=== PATIENT | male | born 1940 | race Caucasian/White ===

== ENCOUNTER → 2020-11-02 11:25 | Outpatient (CLI) | payer MEDICARE, SELFPAY ==
[2020-11-02] MEDS: COVID-19 VACC #1, MRNA(MOD) 100 MCG/0.5 ML VIAL IM (11:40)
== END ==
PROVIDERS: Visit Provider Internal Medicine
DX: Z23 Encounter for immunization (principal)
CPT/HCPCS: 0011A; 91301

== ENCOUNTER → 2020-12-02 09:56 | Outpatient (CLI) | payer MEDICARE, SELFPAY ==
[2020-12-02] MEDS: COVID-19 VACC #2, MRNA(MOD) 100 MCG/0.5 ML VIAL IM (10:10)
== END ==
PROVIDERS: Visit Provider Internal Medicine
DX: Z23 Encounter for immunization (principal)
CPT/HCPCS: 0012A; 91301

== ENCOUNTER 2020-12-15 06:08 | Emergency (ER) | payer OTHER, SELFPAY ==
[2020-12-15] VITALS (21 sets, daily range): BP systolic 71–156; BP diastolic 44–81; PULSE 49–92; RESP 12–39; TEMP 36.6; O2SAT 94–100
--- NOTE | 2020-12-15 06:15 | ED.GENADULT ---
HPI - General Adult <Liz Camargo MD - Last Filed: 12/16/20 05:20> General Chief complaint: Chest Pain Stated complaint: Upper Back Pain Time Seen by Provider: 12/15/20 06:10 History of Present Illness HPI narrative: 80-year-old gentleman with a history of stroke currently anticoagulated on apixaban, hypertension, hyperlipidemia, hypothyroidism, BPH, presents from home on [facility] with severe chest pain that is radiating forward from his back. It awoke him from sleep at 4:30 a.m. this morning. Associated with some nausea but no significant diaphoresis. He said he had a similar episode of pain a couple of days ago that resolved after a single episode of emesis. He has not been having any exertional dyspnea, orthopnea, lower extremity edema. He notes that he is always tired and this has not changed over the last couple of days. The pain in the center of his back he describes as dull. Was initially rated at 5/10 went down to 4/10 after nitroglycerin given by medics. Describes no recent fevers, cough, abdominal pain, flank pain, change to bowel or bladder habits. Related Data Allergies Allergy/AdvReac Type Severity Reaction Status Date / Time morphine Allergy Verified 12/15/20 07:47 Review of Systems <Liz Camargo MD - Last Filed: 12/16/20 05:20> Review of Systems Narrative: Remainder of complete review of systems is otherwise unremarkable except for that included in the HPI. Patient History <Liz Camargo MD - Last Filed: 12/16/20 05:20> Medical History Hyperlipidemia Hypertension Hypothyroidism (acquired) Stroke Social History Smoking Status: Never smoker Exam <Liz Camargo MD - Last Filed: 12/16/20 05:20> Narrative Exam Narrative: General: Older-appearing gentleman in no acute distress. HEENT: Moist mucous membranes, normal sclera with reactive pupils, Neck: No JVD, supple Respiratory: Lungs are clear to auscultation, no wheezing no rales no rhonchi. Full and symmetrical air movement Cardiac: Regular rate and rhythm no murmurs no bruits Abdomen: Soft, nontender, good bowel tones, no flank pain Skin: Warm and dry, no rashes Neurologic: Grossly neurologically intact with no obvious asymmetries or abnormalities Extremities: No trauma, well perfused Psych: Cooperative, appropriate insight and affect Initial Vital Signs Initial Vital Signs: Vital Signs Temperature 97.9 F 12/15/20 06:18 Pulse Rate 92 H 12/15/20 06:18 Respiratory Rate 18 12/15/20 06:18 Blood Pressure 129/74 12/15/20 06:18 Pulse Oximetry 95 12/15/20 06:18 <Yvonne Dorman DO - Last Filed: 12/15/20 18:58> Initial Vital Signs Initial Vital Signs: Vital Signs Temperature 97.9 F 12/15/20 06:18 Pulse Rate 92 H 12/15/20 06:18 Respiratory Rate 18 12/15/20 06:18 Blood Pressure 129/74 12/15/20 06:18 Pulse Oximetry 95 12/15/20 06:18 Course <Liz Camargo MD - Last Filed: 12/16/20 05:20> Orders Ordered: Discontinued Medications Aspirin (Aspirin 81 Mg Chew Tab) 324 mg PO NOW ONE Stop: 12/15/20 07:44 Last Admin: 12/15/20 07:50 Dose: 324 mg Documented by: KBRYERS Heparin Sodium (Porcine) (Heparin 5,000 Unit/Ml Vial) 5,000 unit SUBCUT NOW ONE Stop: 12/15/20 07:56 Last Admin: 12/15/20 07:58 Dose: Not Given Documented by: BTONER Heparin Sodium (Porcine) (Heparin 5,000 Unit/Ml Vial) 5,000 unit IV NOW ONE Stop: 12/15/20 08:48 Last Admin: 12/15/20 08:49 Dose: 5,000 unit Documented by: RSTONE Hydromorphone HCl (Hydromorphone 0.5 Mg Inj) 0.5 mg IV NOW ONE Stop: 12/15/20 08:46 Last Admin: 12/15/20 08:50 Dose: 0.5 mg Documented by: RSTONE Hydromorphone HCl (Hydromorphone 0.5 Mg Inj) 0.5 mg IV NOW ONE Stop: 12/15/20 08:48 Last Admin: 12/15/20 09:05 Dose: Not Given Documented by: RUI Sodium Chloride (Normal Saline 0.9%) 1,000 mls @ 150 mls/hr IV CONT [facility] Last Infusion: 12/15/20 09:22 Dose: 0 mls/hr Documented by: Infusion: 12/15/20 09:17 Dose: 0 mls/hr Documented by: Admin: 12/15/20 07:40 Dose: 150 mls/hr Documented by: PRERNA Nitroglycerin (Nitroglycerin) 50 mg in 250 mls @ 1.5 mls/hr IV TITRATE [facility]; Protocol Last Titration: 12/15/20 09:23 Dose: 0 mcg/min, 0 mls/hr Documented by: Titration: 12/15/20 09:17 Dose: 0 mcg/min, 0 mls/hr Documented by: Admin: 12/15/20 08:40 Dose: 5 mcg/min, 1.5 mls/hr Documented by: RUI Heparin Sodium/Dextrose (Heparin Drip) 25,000 unit in 500 mls @ 20.412 mls/hr IV CONT [facility]; Protocol Last Titration: 12/15/20 09:22 Dose: 0 units/kg/hr, 0 mls/hr Documented by: Titration: 12/15/20 09:17 Dose: 0 units/kg/hr, 0 mls/hr Documented by: Admin: 12/15/20 08:51 Dose: 18 units/kg/hr, 20.412 mls/hr Documented by: RUI Metoprolol Tartrate (Metoprolol Tartrate 5 Mg/5 Ml Inj) 5 mg IV NOW ONE Stop: 12/15/20 09:00 Last Admin: 12/15/20 09:02 Dose: 5 mg Documented by: RUI Nitroglycerin (Nitroglycerin 0.4 Mg Sl Tab) 0.4 mg SL [id number] PRN PRN Reason: Chest Pain Last Admin: 12/15/20 08:10 Dose: 0.4 mg Documented by: Admin: 12/15/20 07:50 Dose: 0.4 mg Documented by: VITA Ondansetron HCl (Ondansetron 4 Mg/2 Ml Inj) 4 mg IV NOW ONE Stop: 12/15/20 08:40 Last Admin: 12/15/20 08:43 Dose: 4 mg Documented by: RUI Vital Signs Vital signs: Vital Signs - 8 hr 12/15/20 06:18 12/15/20 06:41 12/15/20 07:00 Temperature 97.9 F Pulse Rate 92 H 69 81 Respiratory Rate 18 19 24 Blood Pressure 129/74 Pulse Oximetry 95 97 12/15/20 07:14 12/15/20 07:30 12/15/20 07:31 Temperature Pulse Rate 73 68 65 Respiratory Rate 22 27 H 25 H Blood Pressure 137/74 152/72 H Pulse Oximetry 95 98 98 12/15/20 07:50 12/15/20 07:55 12/15/20 08:00 Temperature Pulse Rate 62 61 64 Respiratory Rate 25 H 24 22 Blood Pressure 143/71 H 104/60 108/58 L Pulse Oximetry 98 98 96 12/15/20 08:05 12/15/20 08:10 12/15/20 08:15 Temperature Pulse Rate 59 L 61 61 Respiratory Rate 21 21 25 H Blood Pressure 104/57 L 100/56 L 71/44 L Pulse Oximetry 96 97 98 12/15/20 08:25 12/15/20 08:36 12/15/20 08:37 Temperature Pulse Rate 56 L 67 66 Respiratory Rate 22 17 Blood Pressure 103/58 L 137/81 Pulse Oximetry 94 98 12/15/20 08:40 12/15/20 08:45 12/15/20 08:50 Temperature Pulse Rate 61 78 84 Respiratory Rate 29 H 27 H 39 H Blood Pressure 146/69 H 152/80 H 152/77 H Pulse Oximetry 97 97 <Yvonne Dorman, DO - Last Filed: 12/15/20 18:58> Orders Ordered: Discontinued Medications Aspirin (Aspirin 81 Mg Chew Tab) 324 mg PO NOW ONE Stop: 12/15/20 07:44 Last Admin: 12/15/20 07:50 Dose: 324 mg Documented by: KBRYERMariam Heparin Sodium (Porcine) (Heparin 5,000 Unit/Ml Vial) 5,000 unit SUBCUT NOW ONE Stop: 12/15/20 07:56 Last Admin: 12/15/20 07:58 Dose: Not Given Documented by: BTONER Heparin Sodium (Porcine) (Heparin 5,000 Unit/Ml Vial) 5,000 unit IV NOW ONE Stop: 12/15/20 08:48 Last Admin: 12/15/20 08:49 Dose: 5,000 unit Documented by: RUI Hydromorphone HCl (Hydromorphone 0.5 Mg Inj) 0.5 mg IV NOW ONE Stop: 12/15/20 08:46 Last Admin: 12/15/20 08:50 Dose: 0.5 mg Documented by: RUI Hydromorphone HCl (Hydromorphone 0.5 Mg Inj) 0.5 mg IV NOW ONE Stop: 12/15/20 08:48 Last Admin: 12/15/20 09:05 Dose: Not Given Documented by: RUI Sodium Chloride (Normal Saline 0.9%) 1,000 mls @ 150 mls/hr IV CONT [facility] Last Infusion: 12/15/20 09:22 Dose: 0 mls/hr Documented by: Infusion: 12/15/20 09:17 Dose: 0 mls/hr Documented by: Admin: 12/15/20 07:40 Dose: 150 mls/hr Documented by: PRERNA Nitroglycerin (Nitroglycerin) 50 mg in 250 mls @ 1.5 mls/hr IV TITRATE [facility]; Protocol Last Titration: 12/15/20 09:23 Dose: 0 mcg/min, 0 mls/hr Documented by: Titration: 12/15/20 09:17 Dose: 0 mcg/min, 0 mls/hr Documented by: Admin: 12/15/20 08:40 Dose: 5 mcg/min, 1.5 mls/hr Documented by: RUI Heparin Sodium/Dextrose (Heparin Drip) 25,000 unit in 500 mls @ 20.412 mls/hr IV CONT [facility]; Protocol Last Titration: 12/15/20 09:22 Dose: 0 units/kg/hr, 0 mls/hr Documented by: Titration: 12/15/20 09:17 Dose: 0 units/kg/hr, 0 mls/hr Documented by: Admin: 12/15/20 08:51 Dose: 18 units/kg/hr, 20.412 mls/hr Documented by: RUI Metoprolol Tartrate (Metoprolol Tartrate 5 Mg/5 Ml Inj) 5 mg IV NOW ONE Stop: 12/15/20 09:00 Last Admin: 12/15/20 09:02 Dose: 5 mg Documented by: RUI Nitroglycerin (Nitroglycerin 0.4 Mg Sl Tab) 0.4 mg SL [id number] PRN PRN Reason: Chest Pain Last Admin: 12/15/20 08:10 Dose: 0.4 mg Documented by: Admin: 12/15/20 07:50 Dose: 0.4 mg Documented by: VITA Ondansetron HCl (Ondansetron 4 Mg/2 Ml Inj) 4 mg IV NOW ONE Stop: 12/15/20 08:40 Last Admin: 12/15/20 08:43 Dose: 4 mg Documented by: RUI Vital Signs Vital signs: Vital Signs - 8 hr 12/15/20 06:18 12/15/20 06:41 12/15/20 07:00 Temperature 97.9 F Pulse Rate 92 H 69 81 Respiratory Rate 18 19 24 Blood Pressure 129/74 Pulse Oximetry 95 97 12/15/20 07:14 12/15/20 07:30 12/15/20 07:31 Temperature Pulse Rate 73 68 65 Respiratory Rate 22 27 H 25 H Blood Pressure 137/74 152/72 H Pulse Oximetry 95 98 98 12/15/20 07:50 12/15/20 07:55 12/15/20 08:00 Temperature Pulse Rate 62 61 64 Respiratory Rate 25 H 24 22 Blood Pressure 143/71 H 104/60 108/58 L Pulse Oximetry 98 98 96 12/15/20 08:05 12/15/20 08:10 12/15/20 08:15 Temperature Pulse Rate 59 L 61 61 Respiratory Rate 21 21 25 H Blood Pressure 104/57 L 100/56 L 71/44 L Pulse Oximetry 96 97 98 12/15/20 08:25 12/15/20 08:36 12/15/20 08:37 Temperature Pulse Rate 56 L 67 66 Respiratory Rate 22 17 Blood Pressure 103/58 L 137/81 Pulse Oximetry 94 98 12/15/20 08:40 12/15/20 08:45 12/15/20 08:50 Temperature Pulse Rate 61 78 84 Respiratory Rate 29 H 27 H 39 H Blood Pressure 146/69 H 152/80 H 152/77 H Pulse Oximetry 97 97 Medical Decision Making <Liz Camargo MD - Last Filed: 12/16/20 05:20> Medical Records Medical records reviewed: Yes I reviewed the patient's medical records. Lab Data Lab results reviewed: Yes I reviewed the patient's lab results. Result diagrams: 12/15/20 06:30 12/15/20 06:30 Labs: Lab Results 12/15/20 12/15/20 12/15/20 Range/Units 06:30 06:30 08:42 WBC 9.1 (4.5-11.0) X10^3/uL RBC 4.09 L (4.5-5.9) X10^6/uL Hgb 12.5 L (13.5-17.5) g/dL Hct 37.4 L (41-53) % MCV 91.5 (80-100) fL MCH 30.6 (26-34) PG MCHC 33.5 (30-36) % RDW 13.9 (11.6-14.8) % Plt Count 189 (150-400) X10^3/uL Neut % (Auto) 73.2 (50-75) % Lymph % (Auto) 17.5 L (25-40) % Bulloch % (Auto) 5.9 (3-14) % Eos % (Auto) 2.5 (2-4) % Baso % (Auto) 0.9 (0-2) % Neut # (Auto) 6700 (2787-1641) /uL Lymph # (Auto) 1600 (7320-7265) /uL Bulloch # (Auto) 500 (0-900) /uL Eos # (Auto) 200 (0-450) /uL Baso # (Auto) 100 (0-100) /uL PT 13.6 H (10.1-12.7) SECONDS INR 1.2 (0.9-1.3) APTT 33 (26.4-36.2) SECONDS Sodium 140 (137-145) mmol/L Potassium 5.1 (3.4-5.1) mmol/L Chloride 110 H (98-107) mmol/L Carbon Dioxide 25 (22-32) mmol/L BUN 33 H (9-20) mg/dL Creatinine 2.39 H (0.66-1.25) mg/dL Estimated GFR 26.4 L (>60) mL/min BUN/Creatinine Ratio 13.8 (6-22) Glucose 121 H (80-110) mg/dL Calcium 9.2 (8.4-10.2) mg/dL Total Bilirubin 0.4 (0.2-1.3) mg/dL AST 42 (17-59) IU/L ALT 14 (<50) IU/L Alkaline Phosphatase 67 (38-126) U/L Total Creatine Kinase 174 H (55-170) U/L CK-MB (CK-2) 12.80 H (<2.37) ng/mL CK-MB (CK-2) Rel Index 7.4 H* (1.5-5.0) % Troponin I 1.700 H* (0.01-0.034) ng/mL Total Protein 6.8 (6.3-8.2) g/dL Albumin 3.8 (3.5-5.0) g/dL Globulin 3.0 (1.7-4.1) g/dL Albumin/Globulin Ratio 1.3 (1.0-2.8) Lipase 115 (23-300) U/L ECG Data Attestation: I personally reviewed and interpreted this ECG as follows: Interpretation: Sinus rhythm at a rate of 69 Normal intervals, normal axis No acute ischemic changes <Yvonne Dorman, - Last Filed: 12/15/20 18:58> Lab Data Lab results reviewed: Yes I reviewed the patient's lab results. Labs: Lab Results 12/15/20 12/15/20 12/15/20 Range/Units 06:30 06:30 08:42 WBC 9.1 (4.5-11.0) X10^3/uL RBC 4.09 L (4.5-5.9) X10^6/uL Hgb 12.5 L (13.5-17.5) g/dL Hct 37.4 L (41-53) % MCV 91.5 (80-100) fL MCH 30.6 (26-34) PG MCHC 33.5 (30-36) % RDW 13.9 (11.6-14.8) % Plt Count 189 (150-400) X10^3/uL Neut % (Auto) 73.2 (50-75) % Lymph % (Auto) 17.5 L (25-40) % Bulloch % (Auto) 5.9 (3-14) % Eos % (Auto) 2.5 (2-4) % Baso % (Auto) 0.9 (0-2) % Neut # (Auto) 6700 (6880-4505) /uL Lymph # (Auto) 1600 (3005-3980) /uL Bulloch # (Auto) 500 (0-900) /uL Eos # (Auto) 200 (0-450) /uL Baso # (Auto) 100 (0-100) /uL PT 13.6 H (10.1-12.7) SECONDS INR 1.2 (0.9-1.3) APTT 33 (26.4-36.2) SECONDS Sodium 140 (137-145) mmol/L Potassium 5.1 (3.4-5.1) mmol/L Chloride 110 H (98-107) mmol/L Carbon Dioxide 25 (22-32) mmol/L BUN 33 H (9-20) mg/dL Creatinine 2.39 H (0.66-1.25) mg/dL Estimated GFR 26.4 L (>60) mL/min BUN/Creatinine Ratio 13.8 (6-22) Glucose 121 H (80-110) mg/dL Calcium 9.2 (8.4-10.2) mg/dL Total Bilirubin 0.4 (0.2-1.3) mg/dL AST 42 (17-59) IU/L ALT 14 (<50) IU/L Alkaline Phosphatase 67 (38-126) U/L Total Creatine Kinase 174 H (55-170) U/L CK-MB (CK-2) 12.80 H (<2.37) ng/mL CK-MB (CK-2) Rel Index 7.4 H* (1.5-5.0) % Troponin I 1.700 H* (0.01-0.034) ng/mL Total Protein 6.8 (6.3-8.2) g/dL Albumin 3.8 (3.5-5.0) g/dL Globulin 3.0 (1.7-4.1) g/dL Albumin/Globulin Ratio 1.3 (1.0-2.8) Lipase 115 (23-300) U/L Imaging Data Chest x-ray: Radiologist's Impression: PROCEDURE: XR CHEST 1V INDICATIONS: chest pain TECHNIQUE: One view of the chest was acquired. COMPARISON: [facility], CT, CT ANGIO CHEST ABDOMEN PELVIS, 12/15/2020, 7:59. FINDINGS: Surgical changes and devices: Wireless pacer is noted. Lungs and pleura: Lungs are clear. No pleural effusions or pneumothorax. Chronic interstitial changes are present. Mediastinum: Mediastinal contours appear normal. Heart size is normal. Bones and chest wall: No suspicious bony lesions. Overlying soft tissues appear unremarkable. IMPRESSION: No acute pulmonary process. The above findings are concordant with preliminary report. Dictated by: Mirella Garcia M.D. on 12/15/2020 at 8:36 CT scan - chest: Radiologist's Impression: I spoke personally with Dr. Wiley radiology who states that there is thrombus in the aorta with ulcers less than 1 cm. It may be the beginning of dissection but difficult to tell with out priors to compare ECG Data Attestation: I personally reviewed and interpreted this ECG as follows: Interpretation: EKG 1. At 6:12 a.m. sinus rhythm rate 69 tall T-waves in V3 V2 V4 V5 no ST elevation or depression no T-wave inversion small Q-wave noted in aVL EKG 2. At 754 persistent peaked T-waves with out ST depression or T-wave inversions although T-wave inversion in AVR is more pronounced MDM Narrative Medical decision making narrative: Received sign-out from Dr. Camargo and seen evaluated patient myself. He appears quite uncomfortable complaining of pain between his shoulder blades. Daughter states that he has a known abdominal aortic aneurysm. He says that he woke up this morning with chest discomfort he feels like pain is coming from his back into his chest. He is feeling nauseated and short of breath. EKGs are concerning for peaked T-waves and troponin is positive at 1.7. However there is really no change in EKGs at the 2 hour gus. Repeat EKG does show on ST depression in V3 through V5 with ST elevation in lead 2 with persistent T-wave inversion in aVR. CT angio was also done I have spoken with Radiology myself. 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 At this time he agrees with transfer for STEMI protocol and he will look at the CT angio Dr. Nguyen ER physician updated on patient's symptoms and happily accepted patient for transfer <Yvonne Dorman, DO - Last Filed: 12/15/20 18:58> Critical Care Time Critical Care Time: Yes Total Critical Care Time: 45 Attestation: The high probability of a clinically significant, sudden or life threatening deterioration of the [cardiovascular] system(s) required my full and direct attention, intervention and personal management. The aggregate critical care time was [45] minutes. This time is in addition to time spent performing reported procedures but includes the following: [x] Data Review and interpretation [x] Patient assessment and monitoring of vital signs [x] Documentation [x] Medication orders and management Discharge Plan Departure Patient Disposition: [facility] Clinical Impression: ST elevation (STEMI) myocardial infarction
--- NOTE | 2020-12-15 06:37 | DI.RAD.S_ITS ---
PROCEDURE: XR CHEST 1V INDICATIONS: chest pain TECHNIQUE: One view of the chest was acquired. COMPARISON: [facility], CT, CT ANGIO CHEST ABDOMEN PELVIS, 12/15/2020, 7:59. FINDINGS: Surgical changes and devices: Wireless pacer is noted. Lungs and pleura: Lungs are clear. No pleural effusions or pneumothorax. Chronic interstitial changes are present. Mediastinum: Mediastinal contours appear normal. Heart size is normal. Bones and chest wall: No suspicious bony lesions. Overlying soft tissues appear unremarkable. IMPRESSION: No acute pulmonary process. The above findings are concordant with preliminary report. Dictated by: Mirella Garcia M.D. on 12/15/2020 at 8:36 Approved by: Mirella Garcia M.D. on 12/15/2020 at 8:37
[2020-12-15 06:51] LABS: Add Manual Diff / Slide Review NO; Basophils Absolute Auto 100 /uL (0-100); Basophils Percent Auto 0.9 % (0-2); Eosinophils Absolute Auto 200 /uL (0-450); Eosinophils Percent Auto 2.5 % (2-4); Hematocrit 37.4 % (41-53); Hemoglobin 12.5 g/dL (13.5-17.5); Lymphocytes Absolute Auto 1600 /uL (1100-4500); Lymphocytes Percent Auto 17.5 % (25-40); Mean Corpuscular HGB Conc 33.5 % (30-36); Mean Corpuscular Hemoglobin 30.6 PG (26-34); Mean Corpuscular Volume 91.5 fL (80-100); Monocytes Absolute Auto 500 /uL (0-900); Monocytes Percent Auto 5.9 % (3-14); Neutrophils Absolute Auto 6700 /uL (1500-7000); Neutrophils Percent Auto 73.2 % (50-75); Platelet Count 189 X10^3/uL (150-400); Red Blood Cell Count 4.09 X10^6/uL (4.5-5.9); Red Cell Distribution Width 13.9 % (11.6-14.8); White Blood Cell Count 9.1 X10^3/uL (4.5-11.0)
[2020-12-15 06:56] LABS: Alanine Aminotransferase 14 IU/L (<50); Albumin 3.8 g/dL (3.5-5.0); Albumin Globulin Ratio 1.3 (1.0-2.8); Alkaline Phosphatase 67 U/L (38-126); Aspartate Aminotransferase 42 IU/L (17-59); BUN Creatinine Ratio 13.8 (6-22); Bilirubin Total 0.4 mg/dL (0.2-1.3); Blood Urea Nitrogen 33 mg/dL (9-20); Calcium 9.2 mg/dL (8.4-10.2); Carbon Dioxide 25 mmol/L (22-32); Chloride 110 mmol/L (98-107); Creatine Kinase 174 U/L (55-170); Estimated Glomerular Filt Rate 26.4 mL/min (>60); Glucose 121 mg/dL (80-110); HEMOLYSIS < 15 (0-50); Lipase 115 U/L (23-300); Potassium 5.1 mmol/L (3.4-5.1); Sodium 140 mmol/L (137-145); Total Protein 6.8 g/dL (6.3-8.2)
[2020-12-15 07:36] LABS: CKMB % Relative Index 7.4 % (1.5-5.0)
[2020-12-15] MEDS: SODIUM CHLORIDE 0.9% 1,000 ML 150 ML IV (07:40)
[2020-12-15] MEDS: ASPIRIN 81 MG CHEW TAB 324 MG PO (07:50)
[2020-12-15] MEDS: NITROGLYCERIN 0.4 MG SL TAB SL ×2 (07:50→08:10)
--- NOTE | 2020-12-15 07:53 | DI.CT.S_ITS ---
PROCEDURE: CT ANGIO CHEST ABDOMEN PELVIS INDICATIONS: Known abdominal aneurysm with thoracic pain and positive tro TECHNIQUE: Precontrast 5 mm thick sections acquired from the lung apices to the iliac crests. After the administration of intravenous contrast, 2.5 mm thick sections again acquired from the lung apices to the iliac crests. Maximum intensity projection (MIP) oblique sagittal and coronal reformats were then acquired. For radiation dose reduction, the following was used: automated exposure control. COMPARISON: None. FINDINGS: CHEST: Lungs: Airway thickening in keeping with nonspecific bronchitis and/or reactive airways disease. Scattered subsegmental atelectasis and/or scarring. No focal consolidation. Severe upper lobe predominant centrilobular emphysema. There also widespread subpleural reticular opacities with possible early honeycombing appearance seen in the right lower lobe for example image 234/6. Also, along the minor fissure on image 118/6. However, no prior comparisons are available. Pleura: No pleural effusions or pneumothorax. Heart: Mildly enlarged. No pericardial effusion. Extensive mitral valvular calcifications as well as diffuse coronary artery calcifications. Reflux of IV contrast material into the patent veins suggest decreased cardiac output. Chest nodes: Normal. Thyroid gland: Negative Aorta: Thoracic aorta grossly normal in size although there is extensive intraluminal plaque and vascular calcification. Within the descending thoracic aorta there are multiple areas of penetrating atherosclerotic ulcer appearances for example image 75/5 measuring 5 mm, image 74/5 measuring approximately 8 mm and image 82/5 measuring approximately 7 mm. The exact age of these findings are is technically indeterminate in the absence of prior studies although could be acute. No periaortic hemorrhage is seen. Low large dissection identified. Pulmonary arteries: No intraluminal filling defects. Esophagus: Diffuse circumferential mural thickening involving the distal esophagus, which is nonspecific. This could be inflammatory or infectious in nature although cannot exclude neoplasm. ABDOMEN: Liver: Normal. Gallbladder: Sub 5 mm incidentally noted cholelithiasis. Bile ducts: Normal. Pancreas: Normal. Spleen: Normal. Adrenals: Normal. Kidneys and ureters: No hydronephrosis. Severe diffuse left renal atrophy or hypoplasia. Right renal cortical scarring and atrophy. Ureters appear decompressed. Stomach and duodenum: Partially decompressed and grossly unremarkable. Bowel: Colonic diverticulosis is seen without evidence of acute complication. No evidence of bowel obstruction. There is mild to moderate stool. The rectum is grossly unremarkable. Other: No free fluid or air. Abdominal nodes: Normal. Aorta and IVC: Large infrarenal abdominal aortic aneurysm measuring approximately 4.6 x 5.1 cm, extending to the bifurcation as well as both common iliac arteries. The right common iliac artery measures up to 4.5 x 4.5 cm and the left common iliac artery measures up to 3.3 x 3.3 cm. Extensive intraluminal thrombus is present. No periaortic hemorrhage is seen. Ventral wall: Tiny periumbilical fat containing hernia. PELVIS: Bladder: Normal. Inguinal region: No hernia. Pelvic nodes: Normal. Bones: Spondylytic changes and facet arthropathy. No vertebral body compression fracture. There are scattered Schmorl's nodes. IMPRESSION: Large infrarenal abdominal aortic aneurysm, which extends to the bifurcation and the common iliac arteries bilaterally as detailed above. No periaortic hemorrhage is seen. Multiple areas of penetrating ulcers involving the thoracic aorta, although which appear to be subcentimeter in size. These could be acute although technically age indeterminate given the absence of prior studies. No large dissection seen. Prior examinations would be most helpful for comparison purposes if obtainable. No evidence of pulmonary embolism. Scattered subsegmental atelectasis and/or scarring. No focal consolidation. Possible early interstitial disease/fibrosis in particular involving the right lung base and along the right fissure as discussed above. Coronary atherosclerosis Incidentally noted cholelithiasis Findings (including all critical results, if any) and recommendations were personally telephoned and discussed with Dr. Dorman on 12-15-20 09:08 Dictated by: Jean Marie Wiley M.D. on 12/15/2020 at 8:51 Approved by: Jean Marie Wiley M.D. on 12/15/2020 at 9:12
[2020-12-15] MEDS: NITROGLYCERIN 50 MG/250 ML INFUS..BTL IV (08:40)
[2020-12-15] MEDS: ONDANSETRON 4 MG/2 ML INJ IV (08:43)
[2020-12-15] MEDS: HEPARIN 5,000 UNIT/ML VIAL 5000 UNIT IV (08:49)
[2020-12-15] MEDS: HYDROMORPHONE 0.5 MG INJ IV (08:50)
[2020-12-15] MEDS: HEPARIN DRIP 25,000 UNIT/500 ML IV.SOLN 20.412 UNIT IV (08:51)
[2020-12-15 08:57] LABS: INR 1.2 (0.9-1.3); Prothrombin Time 13.6 SECONDS (10.1-12.7)
--- NOTE | 2020-12-15 08:57 | PC.NURSE ---
Ibrahima Rn went over to Ct with patient to check blood pressure.
[2020-12-15 08:59] LABS: PTT Partial Thromboplastin Tim 33 SECONDS (26.4-36.2)
--- NOTE | 2020-12-15 08:59 | PC.NURSE ---
JALEN nuñez dunia blood
[2020-12-15] MEDS: METOPROLOL TARTRATE 5 MG/5 ML INJ IV (09:02)
--- NOTE | 2020-12-15 09:13 | PC.NURSE ---
pt is transferring to [facility] for STEMI. on Heparin, NTG and ivf.
== END 2020-12-15 09:15 | disposition short-term general hospital (02) ==
PROVIDERS: Emergency Medicine; Emergency Provider Emergency Medicine
DX: I21.3 ST elevation (STEMI) myocardial infarction of unspecified site (principal); M54.6 Pain in thoracic spine; R11.0 Nausea; Z86.79 Personal history of other diseases of the circulatory system
CPT/HCPCS: 36415; 71045; 71275; 74174; 80053; 82550; 82553; 83690; 84484; 85025; 85610; 85730; 93005; 93010; 96365; 96368; 96375; 99285; 99291; J1170; J1644; J2405

== ENCOUNTER → 2021-03-13 14:17 | Outpatient (ROUT) | payer OTHER, MEDICARE, SELFPAY ==
[2021-03-13 14:57] LABS: BUN Creatinine Ratio 15.1 (6-22); Blood Urea Nitrogen 34 mg/dL (9-20); Calcium 9.1 mg/dL (8.4-10.2); Carbon Dioxide 28 mmol/L (22-32); Chloride 106 mmol/L (98-107); Estimated Glomerular Filt Rate 28.3 mL/min (>60); Glucose 95 mg/dL (80-110); HEMOLYSIS < 15 (0-50); Potassium 4.6 mmol/L (3.4-5.1); Sodium 139 mmol/L (137-145)
== END ==
PROVIDERS: Visit Provider Family Medicine
DX: I51.9 Heart disease, unspecified (principal)
CPT/HCPCS: 80048

== ENCOUNTER 2021-03-25 23:00 | Emergency (ER) | payer OTHER, SELFPAY ==
[2021-03-25 23:05] VITALS: BP 165/91; PULSE 76; RESP 24; TEMP 36.6; O2SAT 97; BMI 20.2
--- NOTE | 2021-03-25 23:05 | DI.RAD.S_ITS ---
PROCEDURE: XR CHEST 1V INDICATIONS: Chest pain TECHNIQUE: One view of the chest was acquired. COMPARISON: [facility], CR, XR CHEST 1V, 12/15/2020, 6:39. FINDINGS: Surgical changes and devices: Cardiac leadless pacer. Additional device projects in the region of the GE junction Lungs and pleura: Scattered subsegmental atelectasis and/or scarring. No focal consolidation. No pleural effusion or pneumothorax. Mediastinum: Mediastinal contours appear normal. Heart size is normal. Bones and chest wall: No suspicious bony lesions. Overlying soft tissues appear unremarkable. IMPRESSION: Scattered subsegmental atelectasis and/or scarring. No focal consolidation. Dictated by: Jean Marie Wiley M.D. on 03/25/2021 at 23:47 Approved by: Jean Marie Wiley M.D. on 03/25/2021 at 23:48
[2021-03-25 23:13] VITALS: PULSE 76; RESP 22; O2SAT 97
[2021-03-25 23:13] LABS: Add Manual Diff / Slide Review NO; Basophils Absolute Auto 0 /uL (0-100); Basophils Percent Auto 0.3 % (0-2); Eosinophils Absolute Auto 400 /uL (0-450); Eosinophils Percent Auto 4.6 % (2-4); Hematocrit 36.5 % (41-53); Hemoglobin 12.2 g/dL (13.5-17.5); Lymphocytes Absolute Auto 2600 /uL (1100-4500); Lymphocytes Percent Auto 31.8 % (25-40); Mean Corpuscular HGB Conc 33.3 % (30-36); Mean Corpuscular Hemoglobin 29.5 PG (26-34); Mean Corpuscular Volume 88.8 fL (80-100); Monocytes Absolute Auto 700 /uL (0-900); Monocytes Percent Auto 8.3 % (3-14); Neutrophils Absolute Auto 4500 /uL (1500-7000); Platelet Count 221 X10^3/uL (150-400); Red Blood Cell Count 4.11 X10^6/uL (4.5-5.9); Red Cell Distribution Width 14.4 % (11.6-14.8); White Blood Cell Count 8.2 X10^3/uL (4.5-11.0)
[2021-03-25] MEDS: ONDANSETRON 4 MG/2 ML INJ IV (23:16)
[2021-03-25 23:19] LABS: Alanine Aminotransferase 12 IU/L (<50); Albumin 3.9 g/dL (3.5-5.0); Albumin Globulin Ratio 1.2 (1.0-2.8); Alkaline Phosphatase 91 U/L (38-126); Aspartate Aminotransferase 22 IU/L (17-59); BUN Creatinine Ratio 17.7 (6-22); Bilirubin Total 0.3 mg/dL (0.2-1.3); Blood Urea Nitrogen 40 mg/dL (9-20); Calcium 9.1 mg/dL (8.4-10.2); Carbon Dioxide 29 mmol/L (22-32); Chloride 104 mmol/L (98-107); Creatine Kinase 36 U/L (55-170); Estimated Glomerular Filt Rate 28.1 mL/min (>60); Globulin 3.2 g/dL (1.7-4.1); Glucose 109 mg/dL (80-110); HEMOLYSIS < 15 (0-50); Lipase 262 U/L (23-300); Potassium 4.4 mmol/L (3.4-5.1); Sodium 139 mmol/L (137-145); Total Protein 7.1 g/dL (6.3-8.2)
--- NOTE | 2021-03-25 23:27 | ED.CHESTPAIN ---
HPI - Chest Pain General Chief Complaint: Chest Pain Stated Complaint: Chest Pain Time Seen by Provider: 03/25/21 23:01 Source: patient and EMS Mode of arrival: EMS Limitations: no limitations History of Present Illness HPI narrative: Patient is a 80-year-old male. He is a DNR/DNI. I did confirm that with him upon arrival. Is here for evaluation of chest pain and back pain. He states that all of his symptoms started earlier this evening. He was lying in bed. He states he became nauseous and had some pickups and then his chest pain and back pain if started. He received Zofran by EMS prior to arrival. By the time I evaluated him he was asymptomatic. He earlier this year he was seen in this facility and transferred for cardiology referral. I was able to review those notes. He did not receive a catheterization. He declared that time that he was a DNR/DNI. It was also reported by the nursing facility that his blood pressure was elevated at the time he was having symptoms. Related Data Allergies Allergy/AdvReac Type Severity Reaction Status Date / Time codeine Allergy Verified 03/25/21 23:05 morphine Allergy Verified 12/15/20 07:47 Review of Systems Constitutional Constitutional: Reports system reviewed and no additional complaints, except as documented Cardiovascular Cardiovascular: Reports as per HPI and Reports system reviewed and no additional complaints, except as documented Respiratory Respiratory: Reports as per HPI and Reports system reviewed and no additional complaints, except as documented Gastrointestinal Gastrointestinal: Reports as per HPI and Reports system reviewed and no additional complaints, except as documented Musculoskeletal Musculoskeletal: Reports system reviewed and no additional complaints, except as documented Integumentary/Breasts Skin/Breast: Reports system reviewed and no additional complaints, except as documented Hematologic/Lymphatic On Anticoagulants: No Patient History Medical History Hyperlipidemia Hypertension Hypothyroidism (acquired) Stroke Social History Smoking Status: Former smoker Smoking Status: Former smoker Substance Use Type: does not use Exam Initial Vital Signs Initial Vital Signs: Vital Signs Temperature 97.8 F 03/25/21 23:05 Pulse Rate 76 03/25/21 23:05 Respiratory Rate 24 03/25/21 23:05 Blood Pressure 165/91 H 03/25/21 23:05 Pulse Oximetry 97 03/25/21 23:05 Const General: cooperative and healthy appearing [facility] Head: normal to inspection and normocephalic Chest Chest: No tenderness Resp Effort & Inspection: normal respiratory effort Auscultation: clear to auscultation bilaterally Cardio Rate: regular rate Rhythm: regular rhythm GI Inspection: normal to inspection Skin General: no rashes or lesions noted Neuro General: patient alert, patient awake and patient oriented x3 Extrem General: normal to inspection and capillary refill normal Psych Appearance: grossly normal and well kempt Course Orders Ordered: ED Orders 03/25/21 23:05 XR chest 1V Stat 03/25/21 23:06 EKG-12 Lead Stat 03/25/21 23:08 Complete Blood Count AUTO DIFF Stat Comprehensive Metabolic Panel Stat Lipase Stat NT-proBNP (BNP-Adult 18+) Stat Troponin & CK Cardiac Panel Stat Discontinued Medications Ondansetron HCl (Ondansetron 4 Mg/2 Ml Inj) 4 mg IV NOW ONE Stop: 03/25/21 23:11 Last Admin: 03/25/21 23:16 Dose: 4 mg Documented by: DONALD Vital Signs Vital signs: Vital Signs - 8 hr 03/25/21 23:05 Temperature 97.8 F Pulse Rate 76 Respiratory Rate 24 Blood Pressure 165/91 H Pulse Oximetry 97 MDM - Chest Pain Lab Data Attestation: I reviewed the patient's lab results. Result diagrams: 03/25/21 23:08 03/25/21 23:08 Labs: Lab Results 03/25/21 03/25/21 Range/Units 23:08 23:08 WBC 8.2 (4.5-11.0) X10^3/uL RBC 4.11 L (4.5-5.9) X10^6/uL Hgb 12.2 L (13.5-17.5) g/dL Hct 36.5 L (41-53) % MCV 88.8 (80-100) fL MCH 29.5 (26-34) PG MCHC 33.3 (30-36) % RDW 14.4 (11.6-14.8) % Plt Count 221 (150-400) X10^3/uL Neut % (Auto) 55.0 (50-75) % Lymph % (Auto) 31.8 (25-40) % [place] % (Auto) 8.3 (3-14) % Eos % (Auto) 4.6 H (2-4) % Baso % (Auto) 0.3 (0-2) % Neut # (Auto) 4500 (1087-7885) /uL Lymph # (Auto) 2600 (5494-3011) /uL [place] # (Auto) 700 (0-900) /uL Eos # (Auto) 400 (0-450) /uL Baso # (Auto) 0 (0-100) /uL Sodium 139 (137-145) mmol/L Potassium 4.4 (3.4-5.1) mmol/L Chloride 104 (98-107) mmol/L Carbon Dioxide 29 (22-32) mmol/L BUN 40 H (9-20) mg/dL Creatinine 2.26 H (0.66-1.25) mg/dL Estimated GFR 28.1 L (>60) mL/min BUN/Creatinine Ratio 17.7 (6-22) Glucose 109 (80-110) mg/dL Calcium 9.1 (8.4-10.2) mg/dL Total Bilirubin 0.3 (0.2-1.3) mg/dL AST 22 (17-59) IU/L ALT 12 (<50) IU/L Alkaline Phosphatase 91 (38-126) U/L Total Creatine Kinase 36 L (55-170) U/L CK-MB (CK-2) TNP CK-MB (CK-2) Rel Index TNP Troponin I 0.046 H (0.01-0.034) ng/mL NT-Pro-B Natriuret Pep 4370 H (<450) pg/mL Total Protein 7.1 (6.3-8.2) g/dL Albumin 3.9 (3.5-5.0) g/dL Globulin 3.2 (1.7-4.1) g/dL Albumin/Globulin Ratio 1.2 (1.0-2.8) Lipase 262 (23-300) U/L Imaging Data Chest x-ray: Radiologist's Impression: [address] [address] XRay Report Signed Patient: Bro Marie MR#: [id number] : 1940 Acct:[id number] Age/Sex: 80 / M Date of Service: 03/25/21 Loc: ED Accession Number: [id number] ?? Procedure: XR chest 1V Ordering Provider: Yony Hernandez D.O. PROCEDURE:? XR CHEST 1V ? INDICATIONS:? Chest pain ? TECHNIQUE:? One view of the chest was acquired.? ? COMPARISON:? [facility], CR, XR CHEST 1V, 12/15/2020, 6:39. ? FINDINGS:? ? Surgical changes and devices:? Cardiac leadless pacer.? Additional device projects in the region of the GE junction ? Lungs and pleura:? Scattered subsegmental atelectasis and/or scarring. No focal consolidation.? No pleural effusion or pneumothorax.? ? Mediastinum:? Mediastinal contours appear normal.? Heart size is normal.? ? Bones and chest wall:? No suspicious bony lesions.? Overlying soft tissues appear unremarkable.? ? IMPRESSION:? Scattered subsegmental atelectasis and/or scarring. No focal consolidation.? Dictated by: Jean Marie Wiley M.D. on 03/25/2021 at 23:47 ? ? Approved by: Jean Marie Wiley M.D. on 03/25/2021 at 23:48? ECG Data Attestation: I personally reviewed and interpreted this ECG as follows: Prior ECG tracings: available for review Interpretation: Sinus rhythm Ventricular rate 81 Normal axis Normal QRS Normal QTC No ST T wave changes MDM Narrative Medical decision making narrative: I was able to review the notes from his visit couple months ago. He clearly states that he was pursuing a natural and did not want resuscitation. No catheterization was performed at that time. There was also notes about hospice/palliative care being involved. By the time I evaluated the patient today he was asymptomatic. His EKG is unchanged from prior EKG. Chest x-ray is unremarkable. Patient is alert oriented x3. We will hold on further workup for now patient would like to be discharged back to his living facility. He was given return precautions. He expressed understanding and agreement. Discharge Plan Departure Patient Disposition: Home Clinical Impression: Chest pain Instructions: DI for Chest Pain Activity Restrictions/Additional Instructions: You can continue to take all of your medications as directed. Contact your primary provider for a follow-up. Return to the emergency department for any new or worsening symptoms
[2021-03-25 23:30] VITALS: PULSE 84; RESP 32
[2021-03-25 23:31] LABS: NT-proBNP (BNP-Adult 18+) 4370 pg/mL (<450); Troponin I 0.046 ng/mL (0.01-0.034)
[2021-03-26] VITALS: BP 154/84; PULSE 81; RESP 19; O2SAT 97
[2021-03-26 00:30] VITALS: BP 132/92; PULSE 87; RESP 20; O2SAT 97
== END 2021-03-26 01:26 | disposition home or self-care (01) ==
PROVIDERS: Emergency Provider Emergency Medicine
DX: R07.9 Chest pain, unspecified (principal); M54.9 Dorsalgia, unspecified; R11.0 Nausea
CPT/HCPCS: 36415; 71045; 80053; 82550; 83690; 83880; 84484; 85025; 93005; 96374; 99284; J2405

== ENCOUNTER 2021-03-29 20:20 | Emergency (ER) | payer OTHER, SELFPAY ==
[2021-03-29] VITALS (11 sets, daily range): BP systolic 128–181; BP diastolic 61–82; PULSE 73–87; RESP 16–25; TEMP 36.2; O2SAT 95–99; BMI 20.3
--- NOTE | 2021-03-29 20:38 | DI.RAD.S_ITS ---
PROCEDURE: XR CHEST 1V INDICATIONS: chest pain TECHNIQUE: One view of the chest was acquired. COMPARISON: [facility], CR, XR CHEST 1V, 03/25/2021, 23:13. FINDINGS: Surgical changes and devices: Left chest wall cardiac device is seen. Lungs and pleura: Lungs are clear. No pleural effusions or pneumothorax. Mediastinum: Mildly tortuous thoracic aorta with aortic arch calcifications are noted . Heart size is normal. Bones and chest wall: No suspicious bony lesions. Overlying soft tissues appear unremarkable. IMPRESSION: No acute cardiopulmonary pathology. Dictated by: Candido Dyer M.D. on 03/29/2021 at 20:51 Approved by: Candido Dyer M.D. on 03/29/2021 at 20:52
[2021-03-29 20:47] LABS: INR 1.1 (0.9-1.3); Prothrombin Time 12.6 SECONDS (10.1-12.7)
[2021-03-29 20:50] LABS: PTT Partial Thromboplastin Tim 36 SECONDS (26.4-36.2)
[2021-03-29 20:52] LABS: Alanine Aminotransferase 12 IU/L (<50); Albumin 3.8 g/dL (3.5-5.0); Albumin Globulin Ratio 1.2 (1.0-2.8); Alkaline Phosphatase 74 U/L (38-126); Aspartate Aminotransferase 22 IU/L (17-59); BUN Creatinine Ratio 18.1 (6-22); Bilirubin Total 0.4 mg/dL (0.2-1.3); Blood Urea Nitrogen 41 mg/dL (9-20); Calcium 9.1 mg/dL (8.4-10.2); Carbon Dioxide 25 mmol/L (22-32); Chloride 106 mmol/L (98-107); Creatine Kinase 30 U/L (55-170); Estimated Glomerular Filt Rate 28.1 mL/min (>60); Globulin 3.3 g/dL (1.7-4.1); Glucose 100 mg/dL (80-110); HEMOLYSIS 37 (0-50); Lipase 257 U/L (23-300); Potassium 4.4 mmol/L (3.4-5.1); Sodium 138 mmol/L (137-145); Total Protein 7.1 g/dL (6.3-8.2)
[2021-03-29 20:53] LABS: Add Manual Diff / Slide Review NO; Basophils Absolute Auto 100 /uL (0-100); Basophils Percent Auto 1.4 % (0-2); Eosinophils Absolute Auto 400 /uL (0-450); Eosinophils Percent Auto 6.1 % (2-4); Hematocrit 36.5 % (41-53); Hemoglobin 11.9 g/dL (13.5-17.5); Lymphocytes Absolute Auto 2200 /uL (1100-4500); Lymphocytes Percent Auto 35.4 % (25-40); Mean Corpuscular HGB Conc 32.6 % (30-36); Mean Corpuscular Hemoglobin 29.2 PG (26-34); Mean Corpuscular Volume 89.6 fL (80-100); Monocytes Absolute Auto 600 /uL (0-900); Monocytes Percent Auto 9.5 % (3-14); Neutrophils Absolute Auto 3000 /uL (1500-7000); Neutrophils Percent Auto 47.6 % (50-75); Platelet Count 214 X10^3/uL (150-400); Red Blood Cell Count 4.08 X10^6/uL (4.5-5.9); Red Cell Distribution Width 14.7 % (11.6-14.8); White Blood Cell Count 6.2 X10^3/uL (4.5-11.0)
[2021-03-29 21:03] LABS: Troponin I 0.033 ng/mL (0.01-0.034)
--- NOTE | 2021-03-29 21:14 | ED_ITS ---
HPI - Chest Pain General Chief Complaint: Chest Pain Stated Complaint: Chest pain Time Seen by Provider: 03/29/21 20:52 Source: patient and EMS Mode of arrival: EMS Limitations: no limitations History of Present Illness HPI narrative: 80-year-old male former smoker with history of coronary artery disease, hypertension and hyperlipidemia presents for the 2nd time this week with a chief complaint of some epigastric pain that developed after eating, at rest. This evening he ate dinner and about an hour later developed this pressure in his epigastrium with radiation to his back that was completely resolved after belching, and prior to his arrival. He denies associated symptoms such as dizziness, weakness or lightheadedness. He denies any shortness of breath. He denies any exertional fatigue. He has had no fever chills. Denies any ongoing symptoms such as pain nausea or vomiting. He states it does feel different than when he had a heart attack but because with was in his chest he felt concerned. He had been living with family up until Saturday when he moved into a local assisted living facility. Daughter, who is at the bedside, states that he is eating significantly more food than previous. Garret tionally low he used to eat 2-3 hours before bed and now eats about 1 hour before bed. Patient is a DNR/DNI and legally blind Related Data Allergies Allergy/AdvReac Type Severity Reaction Status Date / Time codeine Allergy Verified 03/25/21 23:05 morphine Allergy Verified 12/15/20 07:47 Review of Systems Review of Systems Narrative: GENERAL: Denies chills, fatigue, malaise, fever, sweats. HEENT: Denies sinus pain, ear pain, sore throat, difficulty swallowing, dizziness. RESPIRATORY: Denies dyspnea, cough, wheezing, hemoptysis, sputum. CARDIOVASCULAR: See HPI GASTROINTESTINAL: See HP : Denies dysuria, frequency, incontinence, hematuria, urinary retention. MUSCULOSKELETAL: denies weakness, joint pain, or bony pain SKIN: Denies rash, skin lesions, or other NEUROLOGIC: Denies weakness, headache, numbness, change in speech, confusion, seizures, incoordination. PSYCHIATRIC: No concerning psychosocial issues. 12 point review of systems is negative except for those stated above Patient History Medical History Hyperlipidemia Hypertension Hypothyroidism (acquired) Stroke Social History Smoking Status: Former smoker Smoking Status: Former smoker Substance Use Type: does not use Exam Narrative Exam Narrative: GENERAL: [80 year old patient appears stated age. Well-developed patient, in mild distress. HEAD: Atraumatic. Normocephalic. EYES: Pupils equal round and reactive. Extraocular motions intact. No scleral icterus. No injection or drainage. ENT: Nose without bleeding, purulent drainage. Throat without erythema, tonsillar hypertrophy or exudate. Airway patent. NECK: Trachea midline. Non tender CARDIOVASCULAR: Regular rate and rhythm without murmurs, gallops, or rubs. RESPIRATORY: Clear to auscultation. Breath sounds equal bilaterally. No wheezes, rales, or rhonchi. GASTROINTESTINAL: Abdomen soft, non-tender, nondistended. EXTREMITIES: No edema or joint tenderness. BACK: Nontender without deformity or crepitance. No flank tenderness. NEURO: AOx3. SKIN: No rash or erythema of visible areas Initial Vital Signs Initial Vital Signs: Vital Signs Pulse Oximetry 97 03/29/21 20:21 Course Orders Ordered: ED Orders 03/29/21 20:31 Complete Blood Count AUTO DIFF Stat Comprehensive Metabolic Panel Stat Lipase Stat Partial Thromboplastin Time Stat Prothrombin Time INR Stat Troponin & CK Cardiac Panel Stat 03/29/21 20:38 XR chest 1V Stat EKG-12 Lead Stat 03/29/21 21:44 Urine Culture Stat Urine Microscopic Stat 03/29/21 22:36 Troponin I Stat Reevaluation(s) Reevaluation #1: Patient continues to be asymptomatic, we discussed doing a repeat troponin at the 2 hour gus which he is open to Vital Signs Vital signs: Vital Signs - 8 hr 03/29/21 20:21 03/29/21 20:22 03/29/21 20:24 Temperature 97.2 F L Pulse Rate 73 76 Respiratory Rate 16 Blood Pressure 181/82 H 181/82 H Pulse Oximetry 97 99 99 03/29/21 20:30 03/29/21 21:00 03/29/21 21:30 Temperature Pulse Rate 73 77 82 Respiratory Rate 20 24 Blood Pressure 165/75 H 128/68 Pulse Oximetry 98 97 96 03/29/21 21:36 03/29/21 22:00 03/29/21 22:30 Temperature Pulse Rate 87 76 76 Respiratory Rate 24 18 17 Blood Pressure 171/79 H 142/64 H 128/61 Pulse Oximetry 98 96 96 03/29/21 23:00 03/29/21 23:30 Temperature Pulse Rate 78 79 Respiratory Rate 18 25 H Blood Pressure 133/71 139/74 Pulse Oximetry 95 97 MDM - Chest Pain Lab Data Result diagrams: 03/29/21 20:31 03/29/21 20:31 Labs: Lab Results 03/29/21 03/29/21 03/29/21 Range/Units 20:31 20:31 20:31 WBC 6.2 (4.5-11.0) X10^3/uL RBC 4.08 L (4.5-5.9) X10^6/uL Hgb 11.9 L (13.5-17.5) g/dL Hct 36.5 L (41-53) % MCV 89.6 (80-100) fL MCH 29.2 (26-34) PG MCHC 32.6 (30-36) % RDW 14.7 (11.6-14.8) % Plt Count 214 (150-400) X10^3/uL Neut % (Auto) 47.6 L (50-75) % Lymph % (Auto) 35.4 (25-40) % [place] % (Auto) 9.5 (3-14) % Eos % (Auto) 6.1 H (2-4) % Baso % (Auto) 1.4 (0-2) % Neut # (Auto) 3000 (1646-1436) /uL Lymph # (Auto) 2200 (5253-7687) /uL [place] # (Auto) 600 (0-900) /uL Eos # (Auto) 400 (0-450) /uL Baso # (Auto) 100 (0-100) /uL PT 12.6 (10.1-12.7) SECONDS INR 1.1 (0.9-1.3) APTT 36 (26.4-36.2) SECONDS Sodium 138 (137-145) mmol/L Potassium 4.4 (3.4-5.1) mmol/L Chloride 106 (98-107) mmol/L Carbon Dioxide 25 (22-32) mmol/L BUN 41 H (9-20) mg/dL Creatinine 2.26 H (0.66-1.25) mg/dL Estimated GFR 28.1 L (>60) mL/min BUN/Creatinine Ratio 18.1 (6-22) Glucose 100 (80-110) mg/dL Calcium 9.1 (8.4-10.2) mg/dL Total Bilirubin 0.4 (0.2-1.3) mg/dL AST 22 (17-59) IU/L ALT 12 (<50) IU/L Alkaline Phosphatase 74 (38-126) U/L Total Creatine Kinase 30 L (55-170) U/L CK-MB (CK-2) TNP CK-MB (CK-2) Rel Index TNP Troponin I 0.033 (0.01-0.034) ng/mL Total Protein 7.1 (6.3-8.2) g/dL Albumin 3.8 (3.5-5.0) g/dL Globulin 3.3 (1.7-4.1) g/dL Albumin/Globulin Ratio 1.2 (1.0-2.8) Lipase 257 (23-300) U/L Urine RBC (0-5/HPF) Urine WBC (0-5/HPF) Urine Bacteria (None) Ur Culture Indicated? 03/29/21 03/29/21 Range/Units 21:44 22:36 WBC (4.5-11.0) X10^3/uL RBC (4.5-5.9) X10^6/uL Hgb (13.5-17.5) g/dL Hct (41-53) % MCV (80-100) fL MCH (26-34) PG MCHC (30-36) % RDW (11.6-14.8) % Plt Count (150-400) X10^3/uL Neut % (Auto) (50-75) % Lymph % (Auto) (25-40) % [place] % (Auto) (3-14) % Eos % (Auto) (2-4) % Baso % (Auto) (0-2) % Neut # (Auto) (4706-2412) /uL Lymph # (Auto) (3626-1207) /uL [place] # (Auto) (0-900) /uL Eos # (Auto) (0-450) /uL Baso # (Auto) (0-100) /uL PT (10.1-12.7) SECONDS INR (0.9-1.3) APTT (26.4-36.2) SECONDS Sodium (137-145) mmol/L Potassium (3.4-5.1) mmol/L Chloride (98-107) mmol/L Carbon Dioxide (22-32) mmol/L BUN (9-20) mg/dL Creatinine (0.66-1.25) mg/dL Estimated GFR (>60) mL/min BUN/Creatinine Ratio (6-22) Glucose (80-110) mg/dL Calcium (8.4-10.2) mg/dL Total Bilirubin (0.2-1.3) mg/dL AST (17-59) IU/L ALT (<50) IU/L Alkaline Phosphatase (38-126) U/L Total Creatine Kinase (55-170) U/L CK-MB (CK-2) CK-MB (CK-2) Rel Index Troponin I 0.032 (0.01-0.034) ng/mL Total Protein (6.3-8.2) g/dL Albumin (3.5-5.0) g/dL Globulin (1.7-4.1) g/dL Albumin/Globulin Ratio (1.0-2.8) Lipase (23-300) U/L Urine RBC 0-1/hpf (0-5/HPF) Urine WBC None seen (0-5/HPF) Urine Bacteria None seen (None) Ur Culture Indicated? Culture not indicate Urine Dip Bedside Urine Glucose Negative Bedside Urine Bilirubin - Negative Bedside Urine Ketone - Negative Urine Specific [place] 1.025 Bedside Urine Occult Blood +/- Bedside Urine pH 6.0 Bedside Urine Protein +/- 15 Bedside Urine Urobilinogen - Negative Bedside Urine Nitrite - Negative Bedside Urine Leukocytes - Negative Esterase MDM Narrative Medical decision making narrative: 80-year-old male DNR DNI with coronary artery disease history presents with a 2nd episode of epigastric pain with radiation to his back in the past few days. His symptoms in each case were completely resolved by few belches. EKGs are nonischemic, troponin x2 unremarkable. Patient completely asymptomatic for entirety of visit. Cardiac ischemia thought unlikely given lack of exertional symptoms, associated findings such as nausea or vomiting, shortness of breath. Symptoms seem to have begun after a recent m ove in which his daily diet has changed in terms of type of food and quantity of food as well as the timing of eating with when he sleeps. Extensive return precautions have been discussed and questions have been answered to the apparent satisfaction of patient and family. Discharge Plan Departure Patient Disposition: Home Clinical Impression: Atypical chest pain Instructions: DI for Atypical Chest Pain Activity Restrictions/Additional Instructions: *You have been diagnosed with [atypical chest pain, not likely cardiac in nature. Your physical exam, history, labs and EKG are very reassuring. *What to do: *Please consider taking your over the counter antacid twice daily as we discussed. Otherwise, continue to take your regular medications as directed. [ ] New medication prescriptions sent to your pharmacy: [ ] [ ] New medication written as a paper prescription [x ] No new medications given *Please follow up with your primary care provider in 2-3 days, call for an appointment. Let them know you were seen in the Emergency Department and that we ask that you be seen in follow up. We will electronically transmit a record of today's note if your PCP is in our system *If you do not have a primary care provider please contact the [facility] Resource line at [phone]. They will ask some questions about your medical history and help get you set up with a doctor in the community. *Return to Emergency Department if you should have any new, worsening or concerning symptoms, such as [fever greater than 101 F, shaking chills, worsening pain, persistent vomiting or other bothersome symptoms]
[2021-03-29 22:00] LABS: Bacteria Urine None Seen
[2021-03-29 22:01] LABS: RBC Urine 0-1/HPF (0-5/HPF); WBC Urine None Seen (0-5/HPF)
[2021-03-29 23:09] LABS: Troponin I 0.032 ng/mL (0.01-0.034)
== END 2021-03-29 23:48 | disposition home or self-care (01) ==
PROVIDERS: Emergency Provider Emergency Medicine
DX: R07.89 Other chest pain (principal); R10.13 Epigastric pain
CPT/HCPCS: 36415; 71045; 80053; 81003; 81015; 82550; 83690; 84484; 85025; 85610; 85730; 87086; 93005; 99284

== ENCOUNTER 2021-04-21 19:56 | Emergency (ER) | payer OTHER, SELFPAY ==
[2021-04-21] VITALS (9 sets, daily range): BP systolic 160–194; BP diastolic 90–112; PULSE 79–87; RESP 16–29; TEMP 37.1; O2SAT 95–98; BMI 20.1
--- NOTE | 2021-04-21 19:59 | DI.RAD.S_ITS ---
PROCEDURE: XR CHEST 1V INDICATIONS: chest pain TECHNIQUE: One view of the chest was acquired. COMPARISON: [facility], CR, XR CHEST 1V, 03/29/2021, 20:41. [facility], CR, XR CHEST 1V, 03/25/2021, 23:13. FINDINGS: Surgical changes and devices: Loop recorder. Lungs and pleura: Lungs are clear. No pleural effusions or pneumothorax. Mediastinum: Mediastinal contours appear unchanged. Heart size is unchanged. Mitral annular calcification. Bones and chest wall: No suspicious bony lesions. Overlying soft tissues appear unremarkable. IMPRESSION: No acute cardiopulmonary abnormality. Dictated by: Adiel Gastelum M.D. on 04/21/2021 at 22:33 Approved by: Adiel Gastelum M.D. on 04/21/2021 at 22:36
[2021-04-21 20:08] LABS: Add Manual Diff / Slide Review NO; Basophils Absolute Auto 100 /uL (0-100); Basophils Percent Auto 1.2 % (0-2); Eosinophils Absolute Auto 400 /uL (0-450); Eosinophils Percent Auto 5.3 % (2-4); Hematocrit 38.4 % (41-53); Hemoglobin 12.8 g/dL (13.5-17.5); Lymphocytes Absolute Auto 2100 /uL (1100-4500); Lymphocytes Percent Auto 29.3 % (25-40); Mean Corpuscular HGB Conc 33.3 % (30-36); Mean Corpuscular Hemoglobin 29.3 PG (26-34); Mean Corpuscular Volume 88.1 fL (80-100); Monocytes Absolute Auto 800 /uL (0-900); Monocytes Percent Auto 10.8 % (3-14); Neutrophils Absolute Auto 3800 /uL (1500-7000); Neutrophils Percent Auto 53.4 % (50-75); Platelet Count 261 X10^3/uL (150-400); Red Blood Cell Count 4.36 X10^6/uL (4.5-5.9); Red Cell Distribution Width 15.2 % (11.6-14.8)
[2021-04-21 20:28] LABS: INR 1.1 (0.9-1.3); Prothrombin Time 12.1 SECONDS (10.1-12.7)
[2021-04-21 20:31] LABS: PTT Partial Thromboplastin Tim 32 SECONDS (26.4-36.2)
[2021-04-21 20:46] LABS: Alanine Aminotransferase 12 IU/L (<50); Albumin 3.9 g/dL (3.5-5.0); Albumin Globulin Ratio 1.1 (1.0-2.8); Alkaline Phosphatase 73 U/L (38-126); Aspartate Aminotransferase 21 IU/L (17-59); BUN Creatinine Ratio 16.9 (6-22); Bilirubin Total 0.4 mg/dL (0.2-1.3); Blood Urea Nitrogen 42 mg/dL (9-20); Carbon Dioxide 27 mmol/L (22-32); Chloride 105 mmol/L (98-107); Creatine Kinase 42 U/L (55-170); Estimated Glomerular Filt Rate 25.1 mL/min (>60); Globulin 3.5 g/dL (1.7-4.1); Glucose 130 mg/dL (80-110); HEMOLYSIS < 15 (0-50); Lipase 128 U/L (23-300); Potassium 4.1 mmol/L (3.4-5.1); Sodium 139 mmol/L (137-145); Total Protein 7.4 g/dL (6.3-8.2)
--- NOTE | 2021-04-21 21:07 | ED.CHESTPAIN ---
HPI - Chest Pain General Chief Complaint: Chest Pain Stated Complaint: Chest Pain Time Seen by Provider: 04/21/21 20:05 Source: patient and EMS Mode of arrival: EMS Limitations: no limitations History of Present Illness HPI narrative: Patient is an 81-year-old male with history of coronary artery disease, CVA, hypertension, AAA, aortic thoracic ulcers presenting today with chest discomfort. He actually had an NSTEMI in November of 2020 where he was sent to [facility]. 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 According to the daughter who was actually put on hospice but was released from hospice a few weeks ago because he was doing well. This is his 3rd visit to the emergency department this month for chest pain. He said he was trying to go to sleep he had chest discomfort radiated straight to his box through his scapulas he was diaphoretic and nauseated. He was given aspirin in EMS upon arrival to the ED he was no longer having chest discomfort. This was similar to all other presentations to the emergency department. He continues to promote DNR/DNI and POLST endorsing comfort measures only. Related Data Previous Rx's Medication Instructions Recorded hydrocodone 5 mg-acetaminophen 325 1 tab PO Q6H PRN #10 tab 04/21/21 mg tablet Allergies Allergy/AdvReac Type Severity Reaction Status Date / Time codeine Allergy Verified 03/25/21 23:05 morphine Allergy Verified 12/15/20 07:47 Review of Systems Review of Systems Narrative: GENERAL: Denies chills, fatigue, malaise, fever, sweats, travel HEENT: Denies sinus pain, ear pain, sore throat, difficulty swallowing, neck pain RESPIRATORY: Denies dyspnea, cough, wheezing, hemoptysis, sputum. CARDIOVASCULAR: See HPI GASTROINTESTINAL: Denies nausea, vomiting, abdominal pain, diarrhea, constipation, melena. : Denies dysuria, frequency, incontinence, hematuria, urinary retention, flank pain. MUSCULOSKELETAL: Denies weakness, joint pain, or bony pain SKIN: No rash, no erythema, no pruritus NEUROLOGIC: Denies weakness, dizziness, headache, numbness, change in speech, confusion PSYCHIATRIC: No concerning psychosocial issues. 12 point review of systems is negative except for those stated above and HPI Patient History Medical History Hyperlipidemia Hypertension Hypothyroidism (acquired) Stroke Social History Smoking Status: Former smoker Smoking Status: Former smoker Substance Use Type: does not use Exam Initial Vital Signs Initial Vital Signs: Vital Signs Temperature 98.7 F 04/21/21 20:00 Pulse Rate 87 04/21/21 20:00 Respiratory Rate 17 04/21/21 20:00 Blood Pressure 175/95 H 04/21/21 20:00 Pulse Oximetry 97 04/21/21 20:00 GENERAL: Alert very pleasant well-appearing 81 male HEENT: Head atraumatic,EOMI, pupils reactive, left eye better than right face symmetric, moist mucous membranes CARDIOVASCULAR: Regular rate and rhythm without murmurs, rubs or gallops. RESPIRATORY: Breath sounds equal bilaterally, no wheezes rales or rhonchi. ABDOMEN: Soft, nontender. Normoactive bowel sounds all 4 quadrants. No guarding or rebound. : No CVA tenderness EXTREMITIES: Normal range of motion, no clubbing or edema. Neurovascularly intact NEUROLOGICAL: Alert and oriented x4.Normal gait and speech. Cranial nerves II through XII grossly intact. SKIN: Warm, dry, no laceration, no petechiae, no rashes or lesions. Course Orders Ordered: ED Orders 04/21/21 19:59 XR chest 1V Stat EKG-12 Lead Stat 04/21/21 20:00 Complete Blood Count AUTO DIFF Stat 04/21/21 20:16 Partial Thromboplastin Time Stat Prothrombin Time INR Stat 04/21/21 20:25 Comprehensive Metabolic Panel Stat Lipase Stat Troponin & CK Cardiac Panel Stat 04/22/21 EKG-12 Lead Routine Discontinued Medications Hydrocodone Bitart/Acetaminophen (Hydrocodone/Acet 5/325 Prepack) 1 bottle MISC SEEINSTR ONE Stop: 04/21/21 22:56 Last Admin: 04/21/21 23:01 Dose: 1 bottle Documented by: JUANA Vital Signs Vital signs: Vital Signs - 8 hr 04/21/21 20:00 04/21/21 20:22 04/21/21 20:30 Temperature 98.7 F Pulse Rate 87 84 83 Respiratory Rate 17 26 H 27 H Blood Pressure 175/95 H 170/95 H 173/100 H Pulse Oximetry 97 95 96 04/21/21 21:00 04/21/21 21:30 04/21/21 22:00 Temperature Pulse Rate 86 80 79 Respiratory Rate 29 H 19 16 Blood Pressure 160/100 H 170/94 H 163/90 H Pulse Oximetry 98 97 96 04/21/21 22:30 04/21/21 22:36 04/21/21 23:00 Temperature Pulse Rate 87 86 81 Respiratory Rate 17 26 H 21 Blood Pressure 194/112 H 175/107 H 177/103 H Pulse Oximetry MDM - Chest Pain Lab Data Result diagrams: 04/21/21 20:00 04/21/21 20:25 Labs: Lab Results 04/21/21 04/21/21 04/21/21 Range/Units 20:00 20:16 20:25 WBC 7.0 (4.5-11.0) X10^3/uL RBC 4.36 L (4.5-5.9) X10^6/uL Hgb 12.8 L (13.5-17.5) g/dL Hct 38.4 L (41-53) % MCV 88.1 (80-100) fL MCH 29.3 (26-34) PG MCHC 33.3 (30-36) % RDW 15.2 H (11.6-14.8) % Plt Count 261 (150-400) X10^3/uL Neut % (Auto) 53.4 (50-75) % Lymph % (Auto) 29.3 (25-40) % [place] % (Auto) 10.8 (3-14) % Eos % (Auto) 5.3 H (2-4) % Baso % (Auto) 1.2 (0-2) % Neut # (Auto) 3800 (0887-8237) /uL Lymph # (Auto) 2100 (9957-3422) /uL [place] # (Auto) 800 (0-900) /uL Eos # (Auto) 400 (0-450) /uL Baso # (Auto) 100 (0-100) /uL PT 12.1 (10.1-12.7) SECONDS INR 1.1 (0.9-1.3) APTT 32 (26.4-36.2) SECONDS Sodium 139 (137-145) mmol/L Potassium 4.1 (3.4-5.1) mmol/L Chloride 105 (98-107) mmol/L Carbon Dioxide 27 (22-32) mmol/L BUN 42 H (9-20) mg/dL Creatinine 2.49 H (0.66-1.25) mg/dL Estimated GFR 25.1 L (>60) mL/min BUN/Creatinine Ratio 16.9 (6-22) Glucose 130 H (80-110) mg/dL Calcium 9.0 (8.4-10.2) mg/dL Total Bilirubin 0.4 (0.2-1.3) mg/dL AST 21 (17-59) IU/L ALT 12 (<50) IU/L Alkaline Phosphatase 73 (38-126) U/L Total Creatine Kinase 42 L (55-170) U/L CK-MB (CK-2) TNP CK-MB (CK-2) Rel Index TNP Troponin I 0.122 H* (0.01-0.034) ng/mL Total Protein 7.4 (6.3-8.2) g/dL Albumin 3.9 (3.5-5.0) g/dL Globulin 3.5 (1.7-4.1) g/dL Albumin/Globulin Ratio 1.1 (1.0-2.8) Lipase 128 (23-300) U/L Imaging Data Chest x-ray: Radiologist's Impression: PROCEDURE:? XR CHEST 1V ? INDICATIONS:? chest pain ? TECHNIQUE:? One view of the chest was acquired.? ? COMPARISON:? [facility], , XR CHEST 1V, 03/29/2021, 20:41.? [facility], , XR CHEST 1V, 03/25/2021, 23:13. ? FINDINGS:? ? Surgical changes and devices:? Loop recorder. ? Lungs and pleura:? Lungs are clear.? No pleural effusions or pneumothorax.? ? Mediastinum:? Mediastinal contours appear unchanged.? Heart size is unchanged.? Mitral annular calcification.? ? Bones and chest wall:? No suspicious bony lesions.? Overlying soft tissues appear unremarkable.? ? IMPRESSION:? No acute cardiopulmonary abnormality. ? ? ? Dictated by: Adiel Gastelum M.D. on 04/21/2021 at 22:33 ? ? Approved by: Adiel Gastelum M.D. on 04/21/2021 at 22:36 ? ECG Data Interpretation: EKG 1. Sinus rhythm rate 85 FL interval 174 QRS 90 QTC 445 peaked T-waves noted in precordial Leads without ST changes EKG 2. Sinus rhythm rate 84 persistent peaked T-waves in precordial leads without ST changes or T-wave inversions. MDM Narrative Medical decision making narrative: Patient's troponin is in the positive range. He remains chest pain-free in the emergency department. Long discussion with him. He continues to have decisional capacity and states that he does not want anything done. He is requesting that he go home. I discussed with him that he would make the home has been not wake up and even . He states he completely understands that he does not want any treatment. I discussed with his daughter who is also his DPOA and she also confirms this. She states that he was previously in hospice but was doing so well he was discharged from hospice. She will call them to see if he can get re in rolled. I will give him some medication to see if that helps any of his pain to keep him from returning to the emergency department. Patient has made it very clear that his goals are care only. I suspect that his pain may also be from some midthoracic ulcers which were diagnosed in November however this cannot be proven. He currently does not want any treatment so it does not make sense to scan him. EKGs do show peaked T-waves without any changes. Discharge Plan Departure Patient Disposition: Home Clinical Impression: Non-ST elevation TN (NSTEMI) Instructions: DI for Acute Coronary Syndrome Activity Restrictions/Additional Instructions: *You have been diagnosed with acute coronary syndrome *What to do: GOALS OF CARE ARE COMFORT. PATIENT DOES NOT WANT ANY INTERVENTION. BEFORE RETURNING TO THE EMERGENCY DEPARTMENT PLEASE DISCUSS WITH PATIENT A WHAT HE WOULD LIKE. Call Hospice tomorrow to get re-enrolled. Your numbers do show that you are having heart attack. This may lead to . *Continue to take medications as directed [place] 1 tablet every 6 hours if needing for severe pain *Follow up with your primary care provider in 2-3 days *Return to ER if you should have any new, worsening or concerning symptoms CONTROLLED SUBSTANCE DISCHARGE (Narcotoic/benzodiazepine/Flexeril/Phenergan) 1. You have been prescribed narcotic medications, it does have acetaminophen/Tylenol/paracetamol in it, DO NOT TAKE MORE THAN 4,00mg in 24 hours of Tylenol. TRAMADOL DOES NOT CONTAIN TYLENOL 2. Please understand that we cannot provide further refills of narcotics, benzodiazepines or controlled substances through the ED and her pain management will need to be through your provider. 3. While on these medications you cannot drive or operate heavy machinery. 4. You cannot sign legal documents or perform any duties such as this. 5. As long as you're taking opiate pain medications he should also be taking a stool softener such as Colace, Dulcolax, MiraLAX or prune juice, to help avoid constipation. Prescriptions: New hydrocodone-acetaminophen 5-325 mg tablet 1 tab PO Q6H PRN (Reason: pain) Qty: 10 RF: 0
[2021-04-21 21:28] LABS: Troponin I 0.122 ng/mL (0.01-0.034)
[2021-04-21] MEDS: HYDROCODONE/ACET 5/325 PREPACK 1 BOTTLE MISC (23:01)
== END 2021-04-21 23:40 | disposition home or self-care (01) ==
PROVIDERS: Emergency Provider Emergency Medicine
DX: I21.4 Non-ST elevation (NSTEMI) myocardial infarction (principal)
CPT/HCPCS: 36415; 71045; 80053; 82550; 83690; 84484; 85025; 85610; 85730; 93005; 99283; 99284